=== PATIENT | female | born 1955 | race Caucasian/White ===

== ENCOUNTER → 2016-11-11 | Outpatient (CLI) | payer OTHER ==
--- NOTE | 2016-11-12 16:11 | MAMMOGRAPHY REPORT ---
BILATERAL DIGITAL SCREENING MAMMOGRAM TOMOSYNTHESIS WITH CAD: 11/11/2016 CLINICAL HISTORY: Routine screening. Patient has no complaints. TECHNIQUE: Breast tomosynthesis in addition to standard 2D mammography was performed. Current study was also evaluated with a Computer Aided Detection (CAD) system. COMPARISON: Prior outside mammograms dated 07/30/2015, 07/25/2015, 07/14/2014, 06/26/2013. BREAST COMPOSITION: There are scattered areas of fibroglandular density in both breasts. FINDINGS: No suspicious masses, calcifications, or areas of architectural distortion are noted in ei ther breast. There has been no significant interval change compared to prior exams. A biopsy marker clip is noted in the left upper outer quadrant. Small bilateral circumscribed benign-appearing bhavesh s are again noted, which are considered benign given the multiplicity and bilaterality and likely rep resent cysts. IMPRESSION: ACR BI-RADS CATEGORY 2: BENIGN There is no mammographic evidence of malignancy. A 1 year screening mammogram is recommended. The pa tient will receive written notification of the results. Approximately 10% of breast cancers are not detected with mammography. A negative mammographic report should not delay biopsy if a clinically suggestive mass is present. Tasha Ibarra M.D. /:11/12/2016 15:52:47 Petroleum Supply Specialist: Magdalena AVELAR(Franki)(Ke[place])([facility]), [facility] letter sent: Normal 1/2 BI-RADS Code: ACR BI-RADS Category 2: Benign
== END | disposition home or self-care (01) ==
LOC: C.MAMM 12:03
PROVIDERS: ATTEND Family Medicine
DX: Z12.31 Encounter for screening mammogram for malignant neoplasm of breast (principal)

== ENCOUNTER → 2017-01-29 | Outpatient (CLI) | payer OTHER ==
--- NOTE | 2017-01-29 12:16 | DIAGNOSTIC IMAGING REPORT ---
CHEST 2 VIEWS ROUTINE CLINICAL HISTORY: CHEST PAIN dyspnea COMPARISON STUDY: No previous studies for comparison. FINDINGS: The bones soft tissues and hemidiaphragms are normal. The cardiomediastinal silhouette is normal. The lungs are clear. The pulmonary vasculature is normal. IMPRESSION: Negative chest. The above report was generated using voice recognition software. It may contain grammatical, syntax or spelling errors. Electronically signed by: Derik Pagan M.D. 01/29/2017 12:15 PM Dictated Date/Time: 01/29/2017 12:14 PM
== END | disposition home or self-care (01) ==
LOC: C.RADBC 12:02
PROVIDERS: ATTEND Family Medicine
DX: R07.9 Chest pain, unspecified (principal)

== ENCOUNTER → 2017-02-23 | Outpatient (CLI) | payer OTHER ==
[~2017-02-23] MED LIST: PERFLUTREN LIPID MICROSPHERE (DEFINITY) IV ONE
--- NOTE | 2017-02-23 22:35 | EXERCISE STRESS ECHO ---
*NOTICE TO RECEIVING [employer] This information is strictly Confidential and protected under [place] law. [place] law prohibits you from making any further disclosure of this information unless further disclosure is expressly permitted by the written consent of the person to whom it pertains or is authorized by law. A general authorization for the release of medical or other information is not sufficient for this purpose. Hospital accepts no responsibility if the information is made available to any other person, INCLUDING THE PATIENT. Interpretation Summary * Name: CHHAYA HALL Study Date: 02/23/2017 10:24 AM BP: 123/74 mmHg * Patient Location: [facility] HR: 89 * : 1955 (M/d/yyyy) Gender: Female Height: 64 in * Age: 61 yrs Ethnicity: CA Weight: 154 lb * Ordering Physician: Mary Uriarte * Referring Physician: Mary Uriarte D.O. * Performed By: Munira Diaz RDCS * * Reason For Study: CHEST PAIN * BSA: 1.8 m2 * -- Conclusions -- * Stress Echo: * 1. Negative stress echo for ischemia at 106 % MPHR. * 2. Negative exercise ECG for ischemia at 106 % MPHR. * 3. Appropriate blood pressure response to exercise. * 4. No arrhythmia. * 5. Study terminated due to fatigue and target heart rate attained. No chest pain reported. * 6. Fair exercise tolerance. * 7. Technically difficult study, enhanced with IV Definity. * Echo: * 1. Normal left ventricular size and systolic function. EF 60-65%. No regional wall motion abnormalities. No left ventricular hypertrophy. Type 1 diastolic dysfunction. * 2. Mild mitral regurgitation. * 3. No prior study available for comparison. Procedure Details * ECHOEX, CPT #43998 * A contrast injection of Definity was performed to improve assessment of LV function. * Contrast was injected into an intravenous site in the left arm. * One vial of Definity ultrasound contrast was diluted in normal saline to a total volume of 10 ml. A total of '5' ml of solution was administered during imaging. * Lot # [id number] of Definity utilized for procedure. * Expiration date MAY 10. * The attending nurse who injected the contrast agent was LIV NGUYEN RN. Left Ventricle * The left ventricle is normal in size. * There is normal left ventricular wall thickness. * Left ventricular systolic function is normal. * The left ventricular ejection fraction increases normally with stress. The left ventricular end-systolic cavity size reduces post-stress (normal response). The left ventricular wall motion with stress is normal. * Resting wall motion: Normal. Stress wall motion: Appropriate increase in Left ventricular systolic function and decrease in cavity size. No stress induced segmental wall motion abnormalities. * No regional wall motion abnormalities noted. Right Ventricle * The right ventricle is normal in size and function. * The right ventricular systolic function is normal as assessed by tricuspid annular plane systolic excursion (TAPSE) (normal >1.5 cm). Atria * The left atrial size is normal. * Right atrial size is normal. * There is no evidence of atrial septal defect, but resolution does not allow assessment for a patent foramen ovale. Mitral Valve * The mitral valve is grossly normal. * There is no mitral valve stenosis. * There is mild mitral regurgitation. Tricuspid Valve * The tricuspid valve is not well visualized, but is grossly normal. * There is no tricuspid stenosis. * Significant tricuspid regurgitation is absent. Aortic Valve * The aortic valve is trileaflet. * No hemodynamically significant valvular aortic stenosis. * No aortic regurgitation is present. Pulmonic Valve * The pulmonary valve is inadequately visualized, but the Doppler data is adequate for interpretation. * Trace pulmonic valvular regurgitation. Great Vessels * The aortic root is normal size. * Aortic arch of normal dimension. Pericardium * There is no pericardial effusion. Stress Parameters * NSR at 89 bpm. * Stress ECG: No ST changes. No arrhythmias. * No arrhythmia were noted with stress. * Rest heart rate was '89' BPM. * Rest blood pressure was '123/74' * Maximum heart rate achieved was 169 bpm. * Maximum heart rate was 106 % of maximum age-predicted heart rate. * Maximum blood pressure was '196/79' * Total exercise time was '6:00' * Maximum exercise MET level achieved was '7' METS * Maximum treadmill speed was '2.5' miles per hour. * Maximum treadmill elevation was '12'% grade. * Exercise was terminated due to 'ACHIEVING TARGET HR' * Normal blood pressure response to exercise. MMode 2D Measurements and Calculations IVSd 0.94 cm IVSs 1.6 cm LVIDd 4.0 cm LVIDs 2.7 cm LVPWd 1.0 cm LVPWs 1.7 cm IVS/LVPW 0.93 FS 33.7 % EDV(Teich) 69.9 ml ESV(Teich) 25.8 ml EF(Teich) 63.1 % EDV(cubed) 63.9 ml ESV(cubed) 18.6 ml EF(cubed) 70.9 % % IVS thick 73.3 % % LVPW thick 67.4 % LV mass(C)d 121.7 grams LV mass(C)dI 69.6 grams/m\S\2 LV mass(C)s 160.8 grams LV mass(C)sI 91.9 grams/m\S\2 SV(Teich) 44.1 ml SI(Teich) 25.2 ml/m\S\2 SV(cubed) 45.3 ml SI(cubed) 25.9 ml/m\S\2 Ao root diam 3.1 cm Ao root area 7.7 cm\S\2 LA dimension 3.2 cm LA/Ao 1.0 LVAd ap4 22.1 cm\S\2 LVLd ap4 7.3 cm EDV(MOD-sp4) 55.7 ml EDV(sp4-el) 56.9 ml LVAs ap4 12.5 cm\S\2 LVLs ap4 6.1 cm ESV(MOD-sp4) 23.8 ml ESV(sp4-el) 22.0 ml EF(MOD-sp4) 57.2 % EF(sp4-el) 61.3 % LVAd ap2 20.4 cm\S\2 LVLd ap2 7.2 cm EDV(MOD-sp2) 49.5 ml EDV(sp2-el) 49.2 ml LVAs ap2 12.0 cm\S\2 LVLs ap2 6.2 cm ESV(MOD-sp2) 21.1 ml ESV(sp2-el) 19.6 ml EF(MOD-sp2) 57.4 % EF(sp2-el) 60.1 % LVLd %diff -1.38 % EDV(MOD-bp) 53.0 ml LVLs %diff 2.7 % ESV(MOD-bp) 22.7 ml EF(MOD-bp) 57.2 % SV(MOD-sp4) 31.8 ml SI(MOD-sp4) 18.2 ml/m\S\2 SV(MOD-sp2) 28.4 ml SI(MOD-sp2) 16.2 ml/m\S\2 SV(MOD-bp) 30.3 ml SI(MOD-bp) 17.3 ml/m\S\2 SV(sp4-el) 34.9 ml SI(sp4-el) 19.9 ml/m\S\2 SV(sp2-el) 29.6 ml SI(sp2-el) 16.9 ml/m\S\2 Doppler Measurements and Calculations MV E max leonarda 55.3 cm/sec MV A max leonarda 66.5 cm/sec MV E/A 0.83 MV dec time 0.24 sec Ao V2 max 118.2 cm/sec Ao max PG 5.6 mmHg Ao max PG (full) 3.1 mmHg LV V1 max PG 2.5 mmHg LV V1 max 78.6 cm/sec
== END | disposition home or self-care (01) ==
LOC: C.CPL 10:16
PROVIDERS: ATTEND Family Medicine
DX: R07.9 Chest pain, unspecified (principal)

== ENCOUNTER 2018-04-21 06:52 | Inpatient (IN) ==
--- NOTE | 2018-04-14 10:18 | PAT Medication Instructions ---
Medication Instructions Date of Service April 14, 2018 Home Medications levothyroxine 75 mcg PO QAM quinapril [Accupril] 20 mg PO QAM simvastatin 40 mg PO PM acetaminophen [Tylenol Extra Strength] 500 - 1,000 mg PO QID PRN cholecalciferol (vitamin D3) 2,000 unit PO QPM cranberry extract 600 - 900 mg PO BID multivitamin 0.5 tab PO QAM wheat dextrin [Benefiber Healthy Shape] 1 dose PO QAM STOP taking 2 weeks before surgery cranberry extract 600 - 900 mg PO BID If surgery is within 2 weeks, stop taking as soon as possible. DO NOT take the morning of surgery quinapril [Accupril] 20 mg PO QAM multivitamin 0.5 tab PO QAM wheat dextrin [Benefiber Healthy Shape] 1 dose PO QAM Take morning of surgery With a small sip of water, OTHERWISE NOTHING TO EAT OR DRINK AFTER MIDNIGHT: levothyroxine 75 mcg PO QAM acetaminophen [Tylenol Extra Strength] 500 - 1,000 mg PO QID PRN (if needed) Take evening before surgery simvastatin 40 mg PO PM acetaminophen [Tylenol Extra Strength] 500 - 1,000 mg PO QID PRN (if needed) cholecalciferol (vitamin D3) 2,000 unit PO QPM Other Notes If you have any questions please call us at [phone] or [phone] or [phone] or [phone]
--- NOTE | 2018-04-14 10:44 | Anesthesiology Consultation ---
Date of Service April 14, 2018 Assessment & Plan (1) Encounter for pre-operative examination: Chart Review Chart Review: Acceptable Risk for Surgery and Patient seen in Pre Admission Testing Consults Requested none Teaching & Discussion Pre-Anesthesia Teaching/Discussion Notes: Instructed NPO after midnight before surgery, except medications with 15 cc of water. Medication instructions provided according to the PAT guidelines. ASA ASA2 Proposed Anesthesia Anesthesia Type: General NPO Date Last Intake of Fluids: 04/20/18 Time Last Intake of Fluids: 22:45 Date Last Intake of Solids: 04/19/18 Time Last Intake of Solids: 21:00 History Surgery Operation Date: 04/21/18 08:50 Proposed Procedures p Laparoscopic Assisted Sigmoid Colon Resection - Sixto Morris MD, FACS Height/Weight Height: 5 ft 3.75 in Weight: 71.8 kg Allergies Allergy/AdvReac Type Severity Reaction Status Date / Time orange (food color) Allergy Mild Hives Verified 04/21/18 07:20 pollen extracts Allergy Mild Congested Verified 04/21/18 07:20 Medications Home Medications Medication Instructions Recorded Confirmed Last Taken levothyroxine 75 mcg PO QAM 01/17/18 04/21/18 04/21/18 05:30 quinapril [Accupril] 20 mg PO QAM 01/17/18 04/21/18 04/20/18 09:00 simvastatin 40 mg PO PM 01/17/18 04/21/18 04/20/18 19:30 acetaminophen [Tylenol Extra 500 - 1,000 mg PO QID PRN 04/12/18 04/21/18 Unknown Strength] cholecalciferol (vitamin D3) 2,000 unit PO QPM 04/12/18 04/21/18 04/20/18 12:00 [Vitamin D3] cranberry extract 600 - 900 mg PO BID 04/12/18 04/21/18 1 Week Ago ~04/14/18 multivitamin 0.5 tab PO QAM 04/12/18 04/21/18 04/20/18 12:00 wheat dextrin [Benefiber Healthy 1 dose PO QAM 04/12/18 04/21/18 04/18/18 08:00 Shape] Active Medications Generic Name Dose Route Start Last Admin Trade Name Freq PRN Reason Stop Dose Admin Lactated Ringer's 1,000 mls @ 15 mls/hr 04/21/18 06:00 04/21/18 07:51 Lr IV 04/22/18 05:59 15 mls/hr .Q24H TONIO Administration Past Medical History Medical History Bronchitis Patient history not current issue Diverticular disease GERD (gastroesophageal reflux disease) HX History of prediabetes NO MEDS-DIET MANAGED Hyperlipidemia Hypertension Hypothyroidism Mild diastolic dysfunction Found on ECHO in late 2015/early 2016 Nausea and vomiting after administration of anesthetic agent Temporomandibular joint disorder OCC GETS SORE-RIGHT SIDE. Never locked open. 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 Able to climb FOS. Denies CP or SOB. ) Review of Systems Patient denies chest pain, shortness of breath, dyspnea on exertion, reflux, cough, wheezing, palpitations. +joint pain (back - helped with exercise) Physical Exam Vital Signs Last Vital Signs Temp 36.5 C 04/21/18 07:05 Pulse 99 H 04/21/18 07:05 Resp 20 04/21/18 07:05 BP 135/84 04/21/18 07:05 Pulse Ox 95 04/21/18 07:05 BP: 124/75 P: 102 R: 16 T: 98.5 SPO2: 96% on RA ENMT Mouth: no dentition abnormality Thyromental Distance: > or= 3.5 Finger Breadths (3.5) Mallampati Class: III Neck normal visual inspection and trachea midline; neck extension not limited Respiratory normal respiratory effort Auscultation: lungs clear to auscultation bilaterally Cardiovascular Rate/Rhythm: regular rate and regular rhythm Heart Sounds: no murmur Vessels: no carotid bruit Neurologic moves all extremities Motor/Sensory: no sensory deficit Psychiatric Orientation: alert and oriented x 3 Testing Electrocardiogram Date: 04/14/18 Findings: + NSR @ (78) Chest X-Ray Date: 04/14/18 Findings: + NAD Stress Test Date: 02/23/17 Type: exercise Findings: + WNL Resting EF: 60-65% Resting LV Function: normal Resting RWMA: + none Negative stress ECHO and EKG for ischemia at 106% MPHR. Appropriate BP response to exercise. No arrhythmia. Study terminated due to fatigue and target HR attained. No chest pain reported. Fair exercise tolerance. Maximum exercise MET level achieved was 7 METs. No LVH. Type 1 diastolic dysfunction. Mild mitral regurgitation. Trace pulmonic regurgitation. Laboratory Results 04/14/18 11:01 04/14/18 11:01 Blood Type A Positive 04/14/18 11:01 Antibody Screen NEGATIVE 04/14/18 11:01 04/21/18 07:23 POC Glucose 143 H
--- NOTE | 2018-04-14 11:23 | XRay Report ---
XR chest Pre-admission PA/Lat CLINICAL HISTORY: 62 years-old Female presenting with asymptomatic, preoperative evaluation. TECHNIQUE: PA and lateral views of the chest were obtained. COMPARISON: 01/29/2017. FINDINGS: Cardiomediastinal silhouette normal. Lungs and pleural spaces clear. Osseous structures normal. Beth cystectomy clips noted. IMPRESSION: 1. No acute cardiopulmonary disease. Electronically signed by: Sebastián Rodriguez M.D. 04/14/2018 11:21 AM
[2018-04-14 13:50] LABS: Basophils # (auto) 0.03 K/uL (0-0.2); Basophils % (auto) 0.6 %; Eosinophils # (auto) 0.12 K/uL (0-0.5); Eosinophils % (auto) 2.5 %; Hematocrit (blood only) 41.3 % (37-47); Immature Granulocytes # (auto) 0.02 K/uL (0.00-0.02); Immature Granulocytes % (auto) 0.4 %; Lymphocytes # (auto) 1.45 K/uL (1.2-3.4); Lymphocytes % (auto) 30.7 %; Mean Corpuscular Hgb Conc 33.9 g/dL (32-36); Mean Corpuscular Volume 85.5 fL (80-100); Mean Platelet Volume 9.6 fL (7.4-10.4); Monocytes # (auto) 0.44 K/uL (0.11-0.59); Monocytes % (auto) 9.3 %; Neutrophils # (auto) 2.67 K/uL (1.4-6.5); Neutrophils % (auto) 56.5 %; Platelet Count 257 K/uL (130-400); RDW Coefficient of Variation 13.8 % (11.5-14.5); RDW Standard Deviation 42.8 fL (36.4-46.3); Red Blood Count 4.83 M/uL (4.2-5.4); White Blood Count 4.73 K/uL (4.8-10.8)
[2018-04-14 14:17] LABS: BUN Creatinine Ratio 14.4 (10-20); Calcium 9.7 mg/dl (8.5-10.1); Creatinine Clr Calc Pharmacy 61.3 ml/min; Est GFR (African American) 77.3; Est GFR (Non-African American) 66.7
[~2018-04-21 06:52] MED LIST changes: +LR 15ML/HR IV SCH; -PERFLUTREN LIPID MICROSPHERE (DEFINITY) IV ONE
[2018-04-21] MEDS ORDERED: MIDAZOLAM HCL 1 MG/ML 2ML VIAL ONE (07:46)
[2018-04-21] MEDS ORDERED: NEOSTIGMINE METHYLSULFATE 5 MG/5 ML SYR ONE (07:46)
[2018-04-21] MEDS ORDERED: PROPOFOL IV EMULSION 10 MG/ML 20 ML VIAL IV ONE (07:46)
[2018-04-21] MEDS ORDERED: ONDANSETRON INJ 2 MG/ML 2 ML VIAL ONE ×2 (07:46→09:33)
[2018-04-21] MEDS ORDERED: LIDOCAINE HCL 2% 2 ML VIAL/AMP(20MG/ML) INFIL ONE (07:46)
[2018-04-21] MEDS ORDERED: GLYCOPYRROLATE 0.2 MG/ML VIAL ONE ×2 (07:46→09:33)
[2018-04-21] MEDS ORDERED: fentaNYL citrate 100 MCG/2 ML VIAL ONE (07:46)
[2018-04-21] MEDS ORDERED: DEXAMETHASONE SOD INJ 4 MG/ML VIAL ONE (07:46)
--- NOTE | 2018-04-21 08:28 | History & Physical Bridge Note ---
Date of Service April 21, 2018 History & Physical Bridge Note I have examined the patient, reviewed the History & Physical and in the interval since the performance of the History & Physical I have noted the following changes of clinical significance: no changes noted at bedside all questions answered
[2018-04-21] MEDS ORDERED: BUPIVACAINE 0.5 % 5 MG/1 ML MPF 30ML VIAL ONE (08:49)
[2018-04-21] MEDS ORDERED: SCOPOLAMINE 1.5 MG TDSY ONE (08:50)
[2018-04-21] MEDS ORDERED: HYDROmorphone INJ 2 MG/ML SYR/VIAL ONE (09:20)
[2018-04-21] MEDS ORDERED: PHENYLEPHRINE HCL 10 MG/ML VIAL ONE (09:33)
[2018-04-21] MEDS ORDERED: SODIUM CHLORIDE 0.9% INJ 10 ML VIAL ONE (09:33)
[2018-04-21] MEDS ORDERED: ROCURONIUM BROMIDE 10 MG/ML 5 ML VIAL ONE (10:51)
--- NOTE | 2018-04-21 11:29 | Post Operative Brief Note ---
Immediate Post Op Note v1 Date of Surgery April 21, 2018 Pre & Post Diagnosis Operation Date: 04/21/18 08:50 Pre-Op Diagnosis: Diverticulosis Post-Op Diagnosis: Diverticulosis Procedure Operation Date: 04/21/18 08:50 Actual Procedures p Laparoscopic Assisted Sigmoid Colon Resection(Not Applicable) - Sixto Morris MD, FACS lyses of densed abdominal adhesions Surgeon Sixto Morris MD, FACS Cooler Deliverer b keyana ROMAN Estimated Blood Loss 100 Findings Consistent with Post-Op Diagnosis Drains Wallis Catheter and Flo-Lynn Drain (19 Fr syd drain.)
[2018-04-21] MEDS ORDERED: HYDROmorphone INJ 1 MG/ML SYRINGE IV PRN (11:50)
[2018-04-21] MEDS ORDERED: FLUMAZENIL 0.1 MG/1 ML 10 ML VIAL IV PRN (11:50)
[2018-04-21] MEDS ORDERED: ONDANSETRON INJ 2 MG/ML 2 ML VIAL IV PRN ×2 (11:50→13:00)
[2018-04-21] MEDS ORDERED: PROMETHAZINE HCL 12.5 MG in SODIUM CHLORIDE 0.9% 50 ML IV PRN (11:50)
[2018-04-21] MEDS ORDERED: NALOXONE HCL 0.4 MG/1 ML VIAL/CARP IV PRN ×2 (11:50→13:00)
[2018-04-21] MEDS ORDERED: ATROPINE SULFATE 0.1 MG/ML 10ML SYR IV PRN (11:50)
[2018-04-21] MEDS ORDERED: LABETALOL HCL IV 5 MG/ML 20ML IV PRN (11:50)
[2018-04-21] MEDS ORDERED: ePHEDrine sulfate 50 MG/ML AMP IV PRN (11:50)
--- NOTE | 2018-04-21 11:56 | Operative Report ---
Post Operative Report Pre & Post Diagnosis Operation Date: 04/21/18 08:50 Pre-Op Diagnosis: Diverticulosis Post-Op Diagnosis: Diverticulosis Procedure Operation Date: 04/21/18 08:50 Actual Procedures p Laparoscopic Assisted Sigmoid Colon Resection, lysis of dense abdominal adhension.(Not Applicable) - Sixto Morris MD, FACS The patient was brought into the operating theater supine position general endotracheal anesthesia Wallis catheter inserted abdomen was prepped with Betadine solution properly draped patient had been placed in lithotomy position antibiotics were given a timeout was had small incision was made above the umbilicus sufficient enough to place a Veress needle followed by CO2 followed by 5 mm trocar point of entry inspected no injury identified patient has significant omental adhesions throughout the lower abdomen. These were meticulously taken down by blunt or sharp dissection after we placed a 5 mm trocar in the right lower quadrant under direct visualization and a 5 mm left flank trocar once the lesions were taken down we could see the distal descending colon and the beginning of the sigmoid colon as it went down towards the pelvic brim we divided along the white line of Toldt to mobilize this area and freed as much as possible down into the pelvic area similarly on the right side to stay close to the big inflammatory mass in the distal sigmoid that was consistent with the area of abscess. Once we mobilized the sufficiently try to continue laparoscopically but there was no definite plane of dissection that I could see between the sigmoid colon and the bladder since patient had a previous hysterectomy and had had an abscess in the sigmoid colon made this area very hard to dissect out at this point I converted to an open procedure by making about a 3 inch incision midline the pubic into the midline into the abdomen were able to place a small blade of the Bookwalter and inserted a hand and was able to deliver out of the pelvis this big inflammatory mass or we could dissect out what appeared to be a very thin sigmoid colon at this point we used the EUGENIO stapler to divide the distal descending colon using the LigaSure to divide the mesentery as we delivered this sigmoid colon out of the pelvis area and inflammatory area and used the staple line distally an Endo EUGENIO delivery once and we embolized this area then we could see that the sigmoid colon was still down into the pelvis and a big inflammatory mass going behind the bladder and dense adhesions we then were able to develop a plane in the anterior to the vulvar hires fascia use the plane of dissection to go on both sides free up the distal sigmoid rectal area using sharp dissection under direct visualization once this had been performed we were able then to use another application of the EUGENIO just at the distal sigmoid rectal area hemostasis was checked on both sides without any problem we were away from the ureters. The proximal sigmoid descending colon area we resected the staple line and then used a 28 dilator to gauge for what we would use a city and a staple 28 went very easily we then used a 2-0 nylon as a pursestring in there and placed the anvil sutured in place tied the continuous nylon the patient had been in Trendelenburg position in a lithotomy position through the rectum we were able then to insert the other end of the EEA the staple line that we had resected I elevated bilateral stay suture of 2-0 silk on both sides and we were able to maneuver the prongs from the A8 inner rectal area and just came just a little bit posterior to the transverse incision staple line we then connected the anvil to this area without any problem making sure there was no other tissue in the area fired it to perfectly old doughnuts were removed we then checked the area by placing some fluid in the pelvis irrigating through the rectum controlling proximally was a bowel clamp there was no leak identified I did put 2 sutures of 3-0 silk to just take some tension off the anastomosis these were corner stitches the area was checked for hemostasis appear satisfactory sponge count was correct we did place a 19 Juan Manuel drain through the left lower quadrant incision in the pelvis attached to skin edge with 2-0 silk the abdomen was closed using #1 PDS interrupted suture [id number] quarter- inch Yasmine was placed in the subcu and the incision kiesha for skin edges kiesha were also used for the trocar sites procedure was tolerated well by the patient estimated blood loss approximately 100 cc addendum Richard Ross Was present throughout the whole procedure helped with exposure retraction manipulation of the EEA Surgeon Sixto Morris MD, FACS Day Trader richard ROSS Estimated Blood Loss 100 Findings Consistent with Post-Op Diagnosis Specimens sigmoid colon Description of Procedure merda I attest to the content of the Intraoperative Record and any orders documented therein. Any exceptions are noted below.
--- NOTE | 2018-04-21 12:38 | Anesthesiology Progress Note ---
Date of Service April 21, 2018 Anesthesia Post Procedure Vital Signs Vital Signs: Temp Pulse Pulse Resp BP BP Pulse Ox 04/21/18 12:31 36.6 C 80 16 136/81 93 04/21/18 12:30 83 18 94 04/21/18 12:26 76 15 129/79 92 04/21/18 12:25 83 21 95 04/21/18 12:22 78 17 93 04/21/18 12:21 76 15 130/77 93 04/21/18 12:20 83 21 93 04/21/18 12:16 76 16 136/87 93 04/21/18 12:15 87 25 H 04/21/18 12:11 87 21 138/72 97 04/21/18 12:10 79 15 98 04/21/18 12:07 87 18 97 04/21/18 12:06 75 20 136/71 97 04/21/18 12:05 75 20 97 04/21/18 12:01 80 19 143/75 H 98 04/21/18 12:00 74 19 04/21/18 11:56 76 16 140/86 98 04/21/18 11:55 79 17 98 04/21/18 11:52 36.6 C 78 94 H 19 141/78 H 141/78 H 97 04/21/18 11:51 97 H 24 92 04/21/18 07:05 36.5 C 99 H 20 135/84 95 Notes Mental Status: alert / awake / arousable Patient Amnestic to Procedure: Yes Nausea / Vomiting: adequately controlled Pain: adequately controlled Airway Patency, RR, SpO2: stable & adequate BP & HR: stable & adequate Hydration State: stable & adequate Anesthetic Complications: no major complications apparent
[2018-04-21] MEDS ORDERED: KETOROLAC 30 MG/ML VIAL ONE (13:26)
[2018-04-21] MEDS: MoRPHine SULFATE PCA 50 MG/50ML IV PRN ×3 (14:10→23:18)
[2018-04-21] MEDS: SODIUM CHLORIDE 0.9% 1000ML 1,000 ML IV SCH (14:16)
[2018-04-21 14:19] LABS: INR 1.1 (0.9-1.1); Prothrombin Time 10.7 Seconds (9.0-12.0)
[2018-04-21] MEDS: cefOXitin 2,000 MG in DEXTROSE 5% 50 ML IV SCH ×2 (14:20→19:48)
[2018-04-21] MEDS: LACTATED RINGER'S 1,000 ML IV SCH (16:28)
[2018-04-21] MEDS: SIMVASTATIN 40 MG TAB PO SCH (20:50)
[2018-04-21] MEDS: HEPARIN SOD 5,000 UNIT/0.5 ML VIAL SQ SCH (20:51)
[2018-04-22] MEDS: LACTATED RINGER'S 1,000 ML IV SCH ×4 (00:10→22:34)
[2018-04-22] MEDS: cefOXitin 2,000 MG in DEXTROSE 5% 50 ML IV SCH ×2 (02:16→08:17)
[2018-04-22] MEDS: LEVOTHYROXINE SODIUM 75 MCG TABLET PO SCH (06:43)
--- NOTE | 2018-04-22 07:56 | Surgery Progress Note ---
Date of Service April 22, 2018 Assessment & Plan (1) Diverticulitis: POD 1 lap assisted sigmoid colectomy seen with Dr. Morris ok to start clears ambulating cont CAR OILER labs pending Subjective minimal pain, no nausea, soares removed this AM Physical Exam 2 Vital Signs (Past 24 Hours): Last Vital Signs Temp 36.4 C L 04/22/18 07:25 Pulse 76 04/22/18 07:25 Resp 14 04/22/18 07:25 BP 142/78 H 04/22/18 07:25 Pulse Ox 94 04/22/18 07:25 Gastrointestinal (Abdomen): Inspection/Auscultation: + abdominal surgical drain present (25 cc overnight); abdomen not distended UOP 625 overnight
[2018-04-22] MEDS: HEPARIN SOD 5,000 UNIT/0.5 ML VIAL SQ SCH ×2 (08:16→21:28)
--- NOTE | 2018-04-22 08:19 | Anesthesiology Progress Note ---
Date of Service April 22, 2018 Anesthesia Post Procedure Vital Signs Vital Signs: Temp Pulse Pulse Pulse Pulse Resp BP 04/22/18 07:25 36.4 C L 76 14 04/22/18 03:47 36.9 C 74 14 04/21/18 23:23 36.9 C 76 14 04/21/18 19:28 36.6 C 91 H 16 04/21/18 15:50 36.3 C L 85 17 04/21/18 14:30 77 16 04/21/18 13:50 36.3 C L 84 16 04/21/18 13:19 80 16 04/21/18 12:50 36.4 C L 74 16 04/21/18 12:31 36.6 C 80 16 136/81 04/21/18 12:30 83 18 04/21/18 12:26 76 15 129/79 04/21/18 12:25 83 21 04/21/18 12:22 78 17 04/21/18 12:21 76 15 130/77 04/21/18 12:20 83 21 04/21/18 12:16 76 16 136/87 04/21/18 12:15 87 25 H 04/21/18 12:11 87 21 138/72 04/21/18 12:10 79 15 04/21/18 12:07 87 18 04/21/18 12:06 75 20 136/71 04/21/18 12:05 75 20 04/21/18 12:01 80 19 143/75 H 04/21/18 12:00 74 19 04/21/18 11:56 76 16 140/86 04/21/18 11:55 79 17 04/21/18 11:52 36.6 C 78 94 H 19 141/78 H 04/21/18 11:51 97 H 24 BP Pulse Ox 04/22/18 07:25 142/78 H 94 04/22/18 03:47 109/63 92 04/21/18 23:23 116/72 93 04/21/18 19:28 118/76 98 04/21/18 15:50 124/78 98 04/21/18 14:30 119/78 95 04/21/18 13:50 115/78 100 04/21/18 13:19 111/76 97 04/21/18 12:50 122/81 95 04/21/18 12:31 93 04/21/18 12:30 94 04/21/18 12:26 92 04/21/18 12:25 95 04/21/18 12:22 93 04/21/18 12:21 93 04/21/18 12:20 93 04/21/18 12:16 93 04/21/18 12:15 04/21/18 12:11 97 04/21/18 12:10 98 04/21/18 12:07 97 04/21/18 12:06 97 04/21/18 12:05 97 04/21/18 12:01 98 04/21/18 12:00 04/21/18 11:56 98 04/21/18 11:55 98 04/21/18 11:52 141/78 H 97 04/21/18 11:51 92 Pain Intensity Abdomen: Pain Intensity: 2 Notes Mental Status: alert / awake / arousable Patient Amnestic to Procedure: Yes Nausea / Vomiting: adequately controlled Pain: adequately controlled Airway Patency, RR, SpO2: stable & adequate BP & HR: stable & adequate Hydration State: stable & adequate Anesthetic Complications: no major complications apparent
[2018-04-22] MEDS: ENALAPRIL MALEATE 10 MG TAB PO SCH (08:42)
[2018-04-22 08:45] LABS: Hematocrit (blood only) 34.2 % (37-47); Hemoglobin 11.5 g/dL (12.0-16.0); Immature Granulocytes # (auto) 0.03 K/uL (0.00-0.02); Immature Granulocytes % (auto) 0.3 %; Lymphocytes # (auto) 0.79 K/uL (1.2-3.4); Lymphocytes % (auto) 7.8 %; Mean Corpuscular Hgb Conc 33.6 g/dL (32-36); Mean Corpuscular Volume 84.9 fL (80-100); Mean Platelet Volume 8.6 fL (7.4-10.4); Monocytes # (auto) 0.32 K/uL (0.11-0.59); Monocytes % (auto) 3.1 %; Neutrophils # (auto) 9.02 K/uL (1.4-6.5); Neutrophils % (auto) 88.8 %; Platelet Count 240 K/uL (130-400); RDW Coefficient of Variation 13.7 % (11.5-14.5); Red Blood Count 4.03 M/uL (4.2-5.4); White Blood Count 10.16 K/uL (4.8-10.8)
[2018-04-22] MEDS ORDERED: QUINAPRIL 20 MG PO SCH (09:00)
[2018-04-22 09:15] LABS: BUN Creatinine Ratio 17.7 (10-20); Calcium 8.5 mg/dl (8.5-10.1); Est GFR (African American) 51.9; Est GFR (Non-African American) 44.8; Potassium 4.2 mmol/L (3.5-5.1)
[2018-04-22] MEDS ORDERED: Nursing to Pharmacy Communication ONE (12:05)
[2018-04-22] MEDS: SODIUM CHLORIDE 0.9% 1000ML 1,000 ML IV SCH (12:18)
[2018-04-22] MEDS: MoRPHine SULFATE PCA 50 MG/50ML IV PRN ×2 (14:54→23:52)
[2018-04-22] MEDS: SIMVASTATIN 40 MG TAB PO SCH (20:43)
[2018-04-22] MEDS ORDERED: PROMETHAZINE HCL 12.5 MG in SODIUM CHLORIDE 0.9% 50 ML IV PRN (21:02)
[2018-04-23] MEDS: LEVOTHYROXINE SODIUM 75 MCG TABLET PO SCH (05:44)
[2018-04-23] MEDS: LACTATED RINGER'S 1,000 ML IV SCH ×3 (05:44→20:50)
[2018-04-23] MEDS: MoRPHine SULFATE PCA 50 MG/50ML IV PRN (07:11)
--- NOTE | 2018-04-23 09:04 | Surgery Progress Note ---
Date of Service April 23, 2018 Assessment & Plan (1) Diverticulitis: POD #2- s/p Lap-Assisted Sigmoid Colon Resection, TREVON with Dr. Morris. Nausea with 2 episodes of emesis overnight- nausea has resolved. Patient NPO, not feeling very hungry right. Would like to try clear liquids for lunch. +passing flatus, +BM Pain controlled - will d/c CAD DRAFTER today- will add PO tylenol with Oxycodone for breakthrough pain. Subjective Patient sitting in chair at bedside- reports nausea with 2 episodes of emesis overnight. States that her nausea has resolved and she is feeling much better. Patient was made NPO overnight. Reports passing flatus, +1 episode of fecal incontinence this AM while in bed. Physical Exam 2 Vital Signs (Past 24 Hours): Last Vital Signs Temp 36.9 C 04/23/18 07:30 Pulse 86 04/23/18 07:30 Resp 18 04/23/18 07:30 BP 153/89 H 04/23/18 07:30 Pulse Ox 95 04/23/18 07:30 Gastrointestinal (Abdomen): Inspection/Auscultation: + abdominal surgical incision (surgical dressing dry- will change tomorrow. ) and + abdominal surgical drain present (serosang drainage. ) Percussion/Palpation: + abdomen tender (tender to palpation at surigcal incision. ) and abdomen soft
[2018-04-23] MEDS: HEPARIN SOD 5,000 UNIT/0.5 ML VIAL SQ SCH ×2 (10:22→20:53)
[2018-04-23] MEDS: ENALAPRIL MALEATE 10 MG TAB PO SCH (10:23)
[2018-04-23] MEDS ORDERED: OXYCODONE HCL IR 5 MG TAB (IMMEDIATE RELEASE) PO PRN (10:25)
[2018-04-23 11:04] LABS: BUN Creatinine Ratio 16.3 (10-20); Calcium 8.5 mg/dl (8.5-10.1); Creatinine Clr Calc Pharmacy 53.2 ml/min; Est GFR (African American) 65.2; Est GFR (Non-African American) 56.2
[2018-04-23] MEDS: SODIUM CHLORIDE 0.9% 1000ML 1,000 ML IV SCH (12:47)
[2018-04-23] MEDS: SIMVASTATIN 40 MG TAB PO SCH (20:52)
[2018-04-24] MEDS: LACTATED RINGER'S 1,000 ML IV SCH ×2 (04:38→12:00)
[2018-04-24] MEDS: LEVOTHYROXINE SODIUM 75 MCG TABLET PO SCH (06:00)
[2018-04-24] MEDS: ACETAMINOPHEN 325 MG TAB PO PRN ×2 (07:05→18:00)
--- NOTE | 2018-04-24 09:23 | Surgery Progress Note ---
Date of Service April 24, 2018 Assessment & Plan (1) Diverticulitis: POD #3- s/p Lap-Assisted Sigmoid Colon Resection, TREVON with Dr. Morris. Patient seen and examined with Dr. Landaverde. Surgical incisions clean, dry, intact. Ava and MONET drain in place. Ambulating in hallway without issue. +passing flatus, +BM (loose) Tolerating clear liquid diet- will advance to full liquids for lunch and possibly low fiber diet for dinner. POD #2- s/p Lap-Assisted Sigmoid Colon Resection, TREVON with Dr. Morris. Nausea with 2 episodes of emesis overnight- nausea has resolved. Patient NPO, not feeling very hungry right. Would like to try clear liquids for lunch. +passing flatus, +BM Pain controlled - will d/c PROFESSOR OF GRAPHIC DESIGN today- will add PO tylenol with Oxycodone for breakthrough pain. Subjective Patient sitting in chair at bedside- reports last night went very well, denies nausea, denies vomiting. reports passing flatus, +BM, tolerating Physical Exam 2 Vital Signs (Past 24 Hours): Last Vital Signs Temp 36.8 C 04/24/18 07:35 Pulse 75 04/24/18 07:35 Resp 16 04/24/18 07:35 BP 127/69 04/24/18 07:35 Pulse Ox 95 04/24/18 07:35 Gastrointestinal (Abdomen): Inspection/Auscultation: + abdominal surgical incision (dressing changed- jax drain, MONET drain present. Incisions with kiesha in place- all clean, dry, intact, no signs of infection. ) and + abdominal surgical drain present (serosang drainage. ) Percussion/Palpation: + abdomen tender (tender to palpation at surigcal incision. ) and abdomen soft
[2018-04-24] MEDS: ENALAPRIL MALEATE 10 MG TAB PO SCH (10:06)
[2018-04-24] MEDS: HEPARIN SOD 5,000 UNIT/0.5 ML VIAL SQ SCH ×2 (10:06→21:14)
[2018-04-24] MEDS: SIMVASTATIN 40 MG TAB PO SCH (21:13)
[2018-04-25] MEDS: ACETAMINOPHEN 325 MG TAB PO PRN ×2 (00:35→12:12)
[2018-04-25] MEDS: LEVOTHYROXINE SODIUM 75 MCG TABLET PO SCH (06:26)
--- NOTE | 2018-04-25 07:25 | Surgery Progress Note ---
Date of Service April 25, 2018 Assessment & Plan (1) Diverticulitis: POD # 4 no problems d/c jax from sub cut and syd drain may shower check later today likely go home see in office 1 week instruction voiced to her POD #3- s/p Lap-Assisted Sigmoid Colon Resection, TREVON with Dr. Morris. Patient seen and examined with Dr. Landaverde. Surgical incisions clean, dry, intact. [place] and MONET drain in place. Ambulating in hallway without issue. +passing flatus, +BM (loose) Tolerating clear liquid diet- will advance to full liquids for lunch and possibly low fiber diet for dinner. POD #2- s/p Lap-Assisted Sigmoid Colon Resection, TREVON with Dr. Morris. Nausea with 2 episodes of emesis overnight- nausea has resolved. Patient NPO, not feeling very hungry right. Would like to try clear liquids for lunch. +passing flatus, +BM Pain controlled - will d/c MEDICAL SERVICES COORDINATOR today- will add PO tylenol with Oxycodone for breakthrough pain. Subjective feels well no complaints, no nausea, tolerating diet, tylenol for pain Physical Exam 2 Vital Signs (Past 24 Hours): Last Vital Signs Temp 36.9 C 04/24/18 23:05 Pulse 80 04/24/18 23:05 Resp 16 04/24/18 23:05 BP 111/68 04/24/18 23:05 Pulse Ox 94 04/24/18 23:05 Physical Exam: alert coherent in no distress abd softly distended minimal syd drainage serous, incision healing well no cellulitis Results & Data Laboratory Results path pending
[2018-04-25] MEDS: HEPARIN SOD 5,000 UNIT/0.5 ML VIAL SQ SCH (08:52)
[2018-04-25] MEDS: ENALAPRIL MALEATE 10 MG TAB PO SCH (08:53)
--- NOTE | 2018-04-26 19:08 | Discharge Summary ---
DISCHARGE DIAGNOSIS: History of perforated diverticulitis with abscess. SECONDARY DISCHARGE DIAGNOSES: 1. Hypertension. 2. Hyperlipidemia. 3. Hypothyroidism. PROCEDURE PERFORMED: Laparoscopic-assisted sigmoid colectomy with stapled anastomosis and lysis of adhesions. HOSPITAL COURSE: The patient is a 62-year-old female with a history of diverticular abscess, now taken to the operating room for semi-elective sigmoid colectomy. Procedure was well tolerated. She was transferred to the surgical floor. Perioperative antibiotics were continued for 24 hours. Subcutaneous heparin was used for DVT prophylaxis. She was started on clear liquids on postoperative day #1. By day 2, she was passing flatus and having small loose bowel movements but was having some nausea. By day #3, she was having more bowel movements, was able to tolerate an advancing diet. On day #4, she was tolerating regular diet and oral analgesics. Her abdomen was soft. Incision was dry. [place] drain was removed from the incision, as well as a Juan Manuel drain from the pelvis. She was stable for discharge home. DISCHARGE INSTRUCTIONS: Discharge home. Follow up with Dr. Morris in 1 week. DISCHARGE MEDICATIONS: Percocet 1-2 tablets every 4 hours as needed. Continue home medications, Accupril 20 mg daily, simvastatin 40 mg daily, daily multivitamin, levothyroxine 75 mcg daily, cranberry extract, vitamin D3 supplement, and daily Benefiber. Hold additional Tylenol while she is taking Percocet. MTDD
== END 2018-04-25 12:23 | disposition home or self-care (01) ==
LOC: ASU 06:52 → 3N 12:00